=== PATIENT | female | born 1995 | race Caucasian/White ===

== ENCOUNTER 2019-12-20 05:49 | Day surgery (SDC) | payer OTHER ==
[2019-12-20] MEDS ORDERED: Lactated Ringers 1,000 ML IV SCH (06:30)
[2019-12-20] MEDS ORDERED: Xylocaine-Mpf 2% 5 Ml Vial ONE (07:48)
[2019-12-20] MEDS ORDERED: SUBLIMAZE 100 MCG/2 ML ONE ×2 (07:48→08:51)
[2019-12-20] MEDS ORDERED: Zemuron 100 MG/10 ML ONE (07:48)
[2019-12-20] MEDS ORDERED: Versed 2 MG/2 ML Injection ONE (07:48)
[2019-12-20] MEDS ORDERED: Decadron 4 MG INJ ONE (07:48)
[2019-12-20] MEDS ORDERED: DIPRIVAN 200 MG/20 ML IV ONE (07:48)
[2019-12-20] MEDS ORDERED: Zofran 4 MG/2 ML VIAL ONE (07:48)
[2019-12-20] MEDS ORDERED: Lactated Ringers 0 ML IV ONE (08:13)
[2019-12-20] MEDS ORDERED: Sensorcaine 0.25% 10 ML ONE (08:13)
[2019-12-20] MEDS ORDERED: ROBINUL ONE (08:18)
[2019-12-20] MEDS ORDERED: BRIDION 200MG/2ML IV ONE (08:21)
[2019-12-20] MEDS ORDERED: TORAdol 30 mg Injection ONE (08:44)
[2019-12-20 10:08] VITALS: O2SAT 100
[2019-12-20 10:09] VITALS: BP 134/70; PULSE 74
[2019-12-20 11:24] LABS: Appearance CLEAR (CLEAR); Bilirubin NEGATIVE (NEGATIVE); Blood NEGATIVE Ery/ul (0-5); Epithelial Cells RARE /HPF (FEW); Glucose NEGATIVE (NEGATIVE); Ketones NEGATIVE (NEGATIVE); Leukocyte Esterase NEGATIVE (NEGATIVE); Mucus SLIGHT /HPF (NEGATIVE); Nitrite NEGATIVE (NEGATIVE); Protein,Urine Dip NEGATIVE (Negative); RBC 0-2 /HPF (0-2); Specific Gravity 1.026 (1.005-1.025); Urobilinogen NEGATIVE mg/dL (0-1)
[2019-12-20 11:34] LABS: Bacteria NONE SEEN /HPF (NEGATIVE)
--- NOTE | 2019-12-21 10:00 | OP ---
SURGERY DATE/TIME: 12/20/2019 0747 PREOPERATIVE DIAGNOSIS: Multiparity desiring tubal sterilization. POSTOPERATIVE DIAGNOSIS: Multiparity desiring tubal sterilization. PROCEDURE: Laparoscopic tubal sterilization via Falope ring application. SURGEON: Wai Aldana D.O. GED TUTOR: Yosi Muhammad surgical dressing maker. ANESTHESIA: General. ESTIMATED BLOOD LOSS: Minimal. COMPLICATIONS: None. INDICATIONS: The risks, benefits, indications and alternatives of the procedure were reviewed with the patient prior to the procedure. The patient understood the risk of infection, bleeding, bowel injury, bladder injury, ureteral injury, uterine perforation, and ectopic that can still occur, can occur 1 in 4 people out of 1,000 may still get as a result of the procedure however desires to have this procedure as a possible means to alleviate her current medical condition. DESCRIPTION OF PROCEDURE AND FINDINGS: At this point the patient is taken to the operating room, given general sedation, placed in a dorsal lithotomy position. Prepped and draped in the usual sterile fashion. A weighted speculum was then placed in the vagina and the anterior lip of the cervix was grasped with a single tooth tenaculum. Endocervical dilators were advanced through the endocervical canal as a means to dilate the cervix and uterine manipulator was then advanced through the endocervical canal as a means to manipulate the uterus. Attention was then turned to the patient's abdominal region where a 5 mm skin incision was made approximately 2 cm above the umbilicus where a 5 mm trocar and sleeve were advanced under direct visualization where pneumoperitoneum was obtained with 4 liters of CO2 gas. Visualization in the abdominal region and pelvic region appeared to be within normal limits. An additional incision was made 2 cm above the symphysis pubis where an 8 mm trocar and sleeve were advanced under direct visualization. From this point the Falope ring applicator was then placed through the trocar site and the right fallopian tube was identified in the isthmic region. The Falope ring applicator was placed and as it discharged the Falope ring and was placed in excellent placement. The same procedure was performed on the left side where the Falope ring applicator was reloaded and the Falope ring was placed on the junction of the isthmic and ampullary region where it was displaced where a nice loop of fallopian tube caught with the Falope ring with excellent placement. There was excellent placement noted on both tubes and there was no other abnormality located in the pelvic region. From this point all instruments were then removed from the patient's abdominal region and the incisions were closed with 4-0 Monocryl suture. The patient was then taken out of dorsal lithotomy position, was taken out of anesthesia and was then taken to the recovery room in stable condition. All instruments and laps were accounted for x2.
== END 2019-12-20 10:10 | disposition home or self-care (01) ==
LOC: SDC 05:49
PROVIDERS: ATTEND Obstetrics & Gynecology
DX: Z30.2 Encounter for sterilization (principal); E11.9 Type 2 diabetes mellitus without complications; Z79.899 Other long term (current) drug therapy
CPT/HCPCS: 81001; 82962; 84703; 87086; J1100; J1885; J2250; J2405; J2704; J3010

== ENCOUNTER 2021-12-24 06:42 | Day surgery (SDC) | payer OTHER ==
[2021-12-24] MEDS ORDERED: Lactated Ringers 1,000 ML IV SCH (07:00)
[2021-12-24] MEDS ORDERED: CEFAZOLIN 2 GM-D5W BAG** 2 GM/50 ML ML IV SCH (07:00)
[2021-12-24] MEDS ORDERED: CEFAZOLIN 2 GM-D5W BAG** 2 GM/50 ML ML IV ONE (07:23)
[2021-12-24] MEDS ORDERED: Lactated Ringers 1,000 ML IV ONE ×2 (07:23→10:46)
[2021-12-24] MEDS ORDERED: Zofran 4 MG/2 ML VIAL ONE (10:06)
[2021-12-24] MEDS ORDERED: Xylocaine-Mpf 2% 5 Ml Vial ONE (10:06)
[2021-12-24] MEDS ORDERED: DIPRIVAN 200 MG/20 ML IV ONE (10:06)
[2021-12-24] MEDS ORDERED: TORAdol 30 mg Injection ONE (10:06)
[2021-12-24] MEDS ORDERED: Decadron 4 MG INJ ONE (10:06)
[2021-12-24] MEDS ORDERED: SUBLIMAZE 100 MCG/2 ML ONE ×2 (10:06→10:46)
[2021-12-24 11:43] VITALS: O2SAT 97
[2021-12-24 12:04] VITALS: BP 116/81; PULSE 66
--- NOTE | 2021-12-25 07:57 | OP ---
SURGERY DATE/TIME: 12/24/2021 1006 PREOPERATIVE DIAGNOSIS: Menorrhagia with failed medical management. POSTOPERATIVE DIAGNOSIS: Menorrhagia with failed medical management. PROCEDURE: Hysteroscopy D&C with endometrial ablation using NovaSure. SURGEON: Wai Aldana D.O. PURCHASING ASSISTANT: Martina Isaac surgical oncologist. ANESTHESIA: General. ESTIMATED BLOOD LOSS: Minimal. COMPLICATIONS: None. INDICATIONS: The risks, benefits, indications and alternatives of the procedure were reviewed with the patient prior to the procedure. The patient understood the risk of infection, bleeding, bowel injury, bladder injury, ureteral injury, uterine perforation, pelvic infection associated with the surgery however desires to have this surgery as a possible means to alleviate her current medical condition. DESCRIPTION OF PROCEDURE AND FINDINGS: At this point the patient is taken to the operating room, given general sedation, placed in the dorsal lithotomy position, prepped and draped in the usual sterile fashion. A weighted speculum is then placed in the patient's vagina and the anterior lip of the cervix was grasped with a single tooth tenaculum. Endocervical dilators were advanced through the endocervical canal as a means to dilate the cervix and at this point a 5 mm hysteroscope was then placed in through the endocervical region where visualization revealed normal endometrial lining. There were no gross abnormalities in the uterine cavity. From this point, the hysteroscope was removed and a curette was then placed into the fundus of the uterus and curettage was performed in all quadrants of the uterus retrieving a mild to moderate amount of endometrial tissue. From this point, hemostasis was obtained. At this point, the NovaSure instrument was then taken with a length of 6.5 cm was inserted through the endocervical canal towards the fundal region, retracted approximately 1 cm and engaged with a width of 3.8 cm. The instrument was then turned on. The machine was turned on for an ablative time of 50 seconds. After 50 seconds the machine was discontinued and the instrument disengaged and removed from the uterine cavity. From this point, all subsequent instruments were removed from the patient's vaginal region. The patient was then taken out of the dorsal lithotomy position, was taken out of anesthesia and was then taken to the recovery room in stable condition. All instruments and laps were accounted for x2.
== END 2021-12-24 12:04 | disposition home or self-care (01) ==
LOC: SDC 06:42
PROVIDERS: ATTEND Obstetrics & Gynecology
DX: N92.0 Excessive and frequent menstruation with regular cycle (principal); R73.03 Prediabetes
CPT/HCPCS: 81025; 82947; J0690; J1100; J1885; J2405; J2704; J3010

== ENCOUNTER 2024-06-21 08:35 | Observation (INO) | payer OTHER ==
[2024-06-27 07:06] LABS: Hematocrit 40.4 % (34.1-44.9); Hemoglobin 13.7 g/dL (11.2-15.7); Mean Cell Volume 86.1 fL (79.4-94.8); Mean Corpuscular Hemoglobin 29.2 pg (25.6-32.2); Mean Corpuscular Hgb Concent. 33.9 g/dL (32.2-35.5); Mean Platelet Volume 9.9 fL (9.4-12.3); Platelet Count 218 x10^3/uL (182-369); Red Blood Count 4.69 x10^6/uL (3.93-5.22); Red Cell Distribution Width 12.6 % (11.7-14.4); White Blood Count 8.3 x10^3/uL (3.98-10.04)
[2024-06-27 07:31] LABS: ALBUMIN 4.6 g/dL (3.5-5.0); ANION GAP 12.6 MEQ/L (5-15); BILIRUBIN,TOTAL 0.5 mg/dL (0.2-1.3); Creatinine 1 0.65 mg/dL (0.52-1.04); EST GLOMERULAR FILTRATION RATE 122.2 ML/MIN; Potassium 3.8 mmol/L (3.5-5.1); Total Protein 8.3 g/dL (6.3-8.2)
[2024-06-27 07:35] LABS: HCG URINE TEST NEGATIVE (NEGATIVE)
[2024-06-27] MEDS ORDERED: Astramorph-Pf 5 MG/10 ML IJ ONE (07:52)
[2024-06-27] MEDS ORDERED: Versed 2 MG/2 ML Injection IV ONE (07:52)
[2024-06-27] MEDS ORDERED: SUBLIMAZE 100 MCG/2 ML IV ONE (07:52)
[2024-06-27] MEDS ORDERED: ROCURONIUM BROMIDE IV ONE (07:52)
[2024-06-27] MEDS ORDERED: propofoL IV ONE (07:52)
[2024-06-27] MEDS ORDERED: Quelicin Fliptop 200 MG/10 ML IJ ONE (08:28)
[2024-06-27] MEDS ORDERED: Lactated Ringers 1,000 ML IV ONE (08:55)
[2024-06-27] MEDS ORDERED: BUPIVACAINE 0.5% VIAL IJ ONE (08:55)
[2024-06-27] MEDS ORDERED: PHENYLEPHRINE HCL IJ ONE (09:00)
[2024-06-27] MEDS ORDERED: BRIDION 200MG/2ML IV ONE (09:51)
[2024-06-27] MEDS ORDERED: Zofran 4 MG/2 ML VIAL IV ONE (09:51)
[2024-06-27 11:34] LABS: Appearance Clear (Clear); Bacteria None Seen /HPF (None Seen); Bilirubin Negative (Negative); Blood Negative (Negative); Epithelial Cells Rare /HPF (None Seen); Glucose, Urine Negative (Negative); Ketones Negative (Negative); Leukocyte Esterase Negative (Negative); Nitrite Negative (Negative); Protein,Urine Dip Trace (Negative); Specific Gravity >=1.030 (1.005-1.030); Urobilinogen 0.2 mg/dL (0.2)
[2024-06-27 11:35] LABS: Mucus Moderate /HPF (NEGATIVE)
[2024-06-27 11:40] LABS: ABO TYPING O; RH TYPING NEGATIVE
[2024-06-27 11:42] LABS: Antibody Screen POSITIVE (NEGATIVE)
[2024-06-27] MEDS ORDERED: Zofran 4 MG/2 ML VIAL IV PRN (13:44)
[2024-06-27] MEDS ORDERED: TORAdol 30 mg Injection IV PRN (13:46)
[2024-06-27] MEDS ORDERED: MEDICATION INTERVENTION MC SCH (14:00)
[2024-06-27] MEDS ORDERED: BENADRYL 50 MG/ML IV PRN (14:00)
[2024-06-27] MEDS ORDERED: Nubain 10 MG/ML IV PRN (14:00)
[2024-06-27] MEDS ORDERED: Narcan 0.4 MG/ML IV PRN (14:00)
[2024-06-27] MEDS ORDERED: Sodium Chloride 0.9% 10 ML FLUSH Syringe IJ PRN (14:00)
[2024-06-27] MEDS ORDERED: DEMEROL 50 MG IV PRN (14:00)
[2024-06-27] MEDS: CEFAZOLIN 2 GM/100 ML NaCl 2 GM/100 ML IVPB IV SCH (15:51)
[2024-06-27] MEDS: Mylicon 80MG PO SCH (15:52)
[2024-06-27] MEDS: Reglan 10 MG/2 ML IV SCH (15:52)
[2024-06-27] MEDS: CLARITIN 10 MG PO PRN (15:52)
[2024-06-27] MEDS: Zofran 4 MG/2 ML VIAL IV PRN (16:21)
[2024-06-27 18:19] LABS: Hematocrit 37.8 % (34.1-44.9); Hemoglobin 12.5 g/dL (11.2-15.7); Mean Cell Volume 87.5 fL (79.4-94.8); Mean Corpuscular Hemoglobin 28.9 pg (25.6-32.2); Mean Corpuscular Hgb Concent. 33.1 g/dL (32.2-35.5); Platelet Count 211 x10^3/uL (182-369); Red Blood Count 4.32 x10^6/uL (3.93-5.22); Red Cell Distribution Width 12.5 % (11.7-14.4); White Blood Count 15.8 x10^3/uL (3.98-10.04)
[2024-06-27] MEDS: Docusate Sodium 100 MG PO SCH (22:01)
[2024-06-27] MEDS: MORPHINE SULFATE 2 MG INJ IV PRN (22:02)
[2024-06-28 05:36] LABS: Hematocrit 34.6 % (34.1-44.9); Hemoglobin 11.2 g/dL (11.2-15.7); Mean Cell Volume 88.7 fL (79.4-94.8); Mean Corpuscular Hemoglobin 28.7 pg (25.6-32.2); Mean Corpuscular Hgb Concent. 32.4 g/dL (32.2-35.5); Mean Platelet Volume 10.4 fL (9.4-12.3); Platelet Count 213 x10^3/uL (182-369); Red Cell Distribution Width 12.8 % (11.7-14.4); White Blood Count 12.8 x10^3/uL (3.98-10.04)
[2024-06-28 06:02] LABS: ALBUMIN 3.6 g/dL (3.5-5.0); ANION GAP 10.8 MEQ/L (5-15); BILIRUBIN,TOTAL 0.4 mg/dL (0.2-1.3); Calcium 8.5 mg/dL (8.4-10.2); Creatinine 1 0.48 mg/dL (0.52-1.04); EST GLOMERULAR FILTRATION RATE 131.4 ML/MIN; Potassium 3.9 mmol/L (3.5-5.1); Total Protein 6.6 g/dL (6.3-8.2)
[2024-06-28 07:30] VITALS: RESP 17
--- NOTE | 2024-06-28 07:41 | PCM.NOTE ---
Date and Time: 06/28/24 0739 Subjective Assessment: pod 1 sp kimberly b/l salpingectomy pt resting in bed able to ambulate and tolerate diet vss afebrile abd; soft dressing intact ext; no clubbing cyanosis or edema hgb; 11 a/p sp kimberly b/l salpingectomy secondary to cpp and recurrent cervical dysplasia labs reviewed today stable for discharge later today should fu in office next Objective Data Vital Signs: Vital Signs - 24 hr Temp Pulse Resp BP Pulse Ox 06/28/24 07:29 96.8 F 77 17 101/59 98 06/28/24 07:03 98 06/28/24 04:00 96.2 F 83 16 103/57 94 L 06/27/24 23:47 97.5 F 55 L 20 97/56 93 L 06/27/24 20:36 94 L 06/27/24 20:00 96.6 F 58 L 16 98/59 97 06/27/24 16:00 97.7 F 77 18 109/66 93 L 06/27/24 14:30 93 H 104/60 90 L 06/27/24 14:00 92 L 06/27/24 13:45 92 L 06/27/24 13:30 78 113/68 91 L 06/27/24 13:00 79 110/72 90 L 06/27/24 12:58 92 L 06/27/24 12:30 91 H 90/50 91 L 06/27/24 12:15 87 107/68 89 L 06/27/24 12:00 75 108/66 91 L 06/27/24 11:45 97.5 F 75 16 112/68 91 L Pain Assessment - Last Documented Pain Intensity 3 Pain Scale Used 0-10 Pain Scale Intake and Output: Intake & Output 06/25/24 06/26/24 06/27/24 06/28/24 11:59 11:59 11:59 11:59 Intake Total 720 Output Total 1000 Balance -280 Weight 108.2 kg 108.2 kg Lab Results: Lab Results-Last 24 Hours 06/27/24 06/28/24 06/28/24 Range/Units 18:15 04:50 04:50 WBC 15.8 H 12.8 H (3.98-10.04) x10^3/uL RBC 4.32 3.90 L (3.93-5.22) x10^6/uL Hgb 12.5 11.2 (11.2-15.7) g/dL Hct 37.8 34.6 (34.1-44.9) % MCV 87.5 88.7 (79.4-94.8) fL MCH 28.9 28.7 (25.6-32.2) pg MCHC 33.1 32.4 (32.2-35.5) g/dL RDW 12.5 12.8 (11.7-14.4) % Plt Count 211 213 (182-369) x10^3/uL MPV 10.0 10.4 (9.4-12.3) fL Sodium 136 (135-145) mmol/L Potassium 3.9 (3.5-5.1) mmol/L Chloride 107 (98-107) mmol/L Carbon Dioxide 22 (22-30) mmol/L Anion Gap 10.8 (5-15) MEQ/L BUN 14 (7-17) mg/dL Creatinine 0.48 L (0.52-1.04) mg/dL Estimated GFR 131.4 ML/MIN Glucose 122 H (74-106) mg/dL Calcium 8.5 (8.4-10.2) mg/dL Total Bilirubin 0.40 (0.2-1.3) mg/dL AST 23 (14-36) U/L ALT 16 (0-35) U/L Alkaline Phosphatase 52 (38-126) U/L Serum Total Protein 6.6 (6.3-8.2) g/dL Albumin 3.6 (3.5-5.0) g/dL Assessment/Plan (1) S/P abdominal hysterectomy Current Visit: Yes Status: Acute Code(s): Z90.710 - ACQUIRED ABSENCE OF BOTH CERVIX AND UTERUS (2) Chronic pelvic pain in female Current Visit: Yes Status: Acute (3) Recurrent cervical intraepithelial neoplasia Current Visit: Yes Status: Acute Code(s): N87.9 - DYSPLASIA OF CERVIX UTERI, UNSPECIFIED
--- NOTE | 2024-06-28 07:47 | PCM.DS ---
Discharge Summary Date of Admission: 06/27/24 11:40 Admitting Physician: YARED YAN DO Primary Care Provider: SAURABH YEE Allergies Allergies No Known Drug Allergies Allergy (Verified 06/27/24 06:09) Hospital Summary - Hospital Course Hospital Course: pt admitted on jun 27 for undergoing a total abdominal hysterectomy b/l salpingectomy secondary to chronic pelvic pain and recurrent cervical dysplasia with hx of endometrial ablation. during postop period did very well able to ambulate and tolerate diet. incision with dressing intact with minimal soiling. labs reviewed with hgb at 11. pt stable for discharge and was advised to fu in office next thursday. all questions answered to her satisfaction. pt given rx for percocet and antibiotic prophylaxis. - Vitals & Intake/Output Vital Signs: Vital Signs Temperature 96.8 F 06/28/24 07:29 Pulse Rate 77 06/28/24 07:29 Respiratory Rate 17 06/28/24 07:29 Blood Pressure 101/59 06/28/24 07:29 O2 Sat by Pulse Oximetry 98 06/28/24 07:29 Intake & Output: Intake & Output 06/25/24 06/26/24 06/27/24 06/28/24 11:59 11:59 11:59 11:59 Intake Total 720 Output Total 1000 Balance -280 Weight 108.2 kg 108.2 kg - Lab Result Diagrams: 06/28/24 04:50 06/28/24 04:50 Lab Results-Last 24 Hrs: Lab Results-Last 24 Hours 06/27/24 06/28/24 06/28/24 Range/Units 18:15 04:50 04:50 WBC 15.8 H 12.8 H (3.98-10.04) x10^3/uL RBC 4.32 3.90 L (3.93-5.22) x10^6/uL Hgb 12.5 11.2 (11.2-15.7) g/dL Hct 37.8 34.6 (34.1-44.9) % MCV 87.5 88.7 (79.4-94.8) fL MCH 28.9 28.7 (25.6-32.2) pg MCHC 33.1 32.4 (32.2-35.5) g/dL RDW 12.5 12.8 (11.7-14.4) % Plt Count 211 213 (182-369) x10^3/uL MPV 10.0 10.4 (9.4-12.3) fL Sodium 136 (135-145) mmol/L Potassium 3.9 (3.5-5.1) mmol/L Chloride 107 (98-107) mmol/L Carbon Dioxide 22 (22-30) mmol/L Anion Gap 10.8 (5-15) MEQ/L BUN 14 (7-17) mg/dL Creatinine 0.48 L (0.52-1.04) mg/dL Estimated GFR 131.4 ML/MIN Glucose 122 H (74-106) mg/dL Calcium 8.5 (8.4-10.2) mg/dL Total Bilirubin 0.40 (0.2-1.3) mg/dL AST 23 (14-36) U/L ALT 16 (0-35) U/L Alkaline Phosphatase 52 (38-126) U/L Serum Total Protein 6.6 (6.3-8.2) g/dL Albumin 3.6 (3.5-5.0) g/dL - Procedures and Test Procedures and Tests throughout Hospitalization: Therapy Orders & Screens 06/27/24 11:40 Incentive Spirometry ROUTINE Comment: 06/27/24 12:57 Oxygen NASAL CANNULA 3 lpm Comment: Final Diagnosis/Problem List - Final Discharge Diagnosis/Problem (1) S/P abdominal hysterectomy Current Visit: Yes Status: Acute Code(s): Z90.710 - ACQUIRED ABSENCE OF BOTH CERVIX AND UTERUS (2) Chronic pelvic pain in female Current Visit: Yes Status: Acute (3) Recurrent cervical intraepithelial neoplasia Current Visit: Yes Status: Acute Code(s): N87.9 - DYSPLASIA OF CERVIX UTERI, UNSPECIFIED - Discharge Disposition: Home, Self-Care Condition: Stable Prescriptions: New Oxycodone HCl/Acetaminophen [Percocet 5-325 mg Tablet] 1 each PO Q6HPRN PRN #15 tablet MDD 4 PRN Reason: Pain No Action Phentermine HCl [Adipex-P] 37.5 mg PO DAILY Follow up with: SAURABH YEE PA [Primary Care Provider] -
--- NOTE | 2024-06-28 07:55 | PCM.DS ---
Discharge Summary Date of Admission: 06/27/24 11:40 Admitting Physician: YARED YAN DO Primary Care Provider: SAURABH YEE Allergies Allergies No Known Drug Allergies Allergy (Verified 06/27/24 06:09) Hospital Summary - Hospital Course Hospital Course: pt admitted on jun 27 and underwent kimberly b;l salpingectomy for chronic pelvic pain and recurrent cervical dysplasia and was done so without complication. during postop period did well able to ambulate and tolerate diet. incision with dressing intact with no soiling on dressing. labs reviewed with stable hgb at 11. pt stable for discharge and was advised to fu in office next thursday. all questions answered to her satisfaction and was advised to call me for any issues that may arise. rx for percocet sent to hospital and antibiotic prophylaxis sent to her pharmacy - Vitals & Intake/Output Vital Signs: Vital Signs Temperature 96.8 F 06/28/24 07:29 Pulse Rate 77 06/28/24 07:29 Respiratory Rate 17 06/28/24 07:29 Blood Pressure 101/59 06/28/24 07:29 O2 Sat by Pulse Oximetry 98 06/28/24 07:29 Intake & Output: Intake & Output 06/25/24 06/26/24 06/27/24 06/28/24 11:59 11:59 11:59 11:59 Intake Total 720 Output Total 1000 Balance -280 Weight 108.2 kg 108.2 kg - Lab Result Diagrams: 06/28/24 04:50 06/28/24 04:50 Lab Results-Last 24 Hrs: Lab Results-Last 24 Hours 06/27/24 06/28/24 06/28/24 Range/Units 18:15 04:50 04:50 WBC 15.8 H 12.8 H (3.98-10.04) x10^3/uL RBC 4.32 3.90 L (3.93-5.22) x10^6/uL Hgb 12.5 11.2 (11.2-15.7) g/dL Hct 37.8 34.6 (34.1-44.9) % MCV 87.5 88.7 (79.4-94.8) fL MCH 28.9 28.7 (25.6-32.2) pg MCHC 33.1 32.4 (32.2-35.5) g/dL RDW 12.5 12.8 (11.7-14.4) % Plt Count 211 213 (182-369) x10^3/uL MPV 10.0 10.4 (9.4-12.3) fL Sodium 136 (135-145) mmol/L Potassium 3.9 (3.5-5.1) mmol/L Chloride 107 (98-107) mmol/L Carbon Dioxide 22 (22-30) mmol/L Anion Gap 10.8 (5-15) MEQ/L BUN 14 (7-17) mg/dL Creatinine 0.48 L (0.52-1.04) mg/dL Estimated GFR 131.4 ML/MIN Glucose 122 H (74-106) mg/dL Calcium 8.5 (8.4-10.2) mg/dL Total Bilirubin 0.40 (0.2-1.3) mg/dL AST 23 (14-36) U/L ALT 16 (0-35) U/L Alkaline Phosphatase 52 (38-126) U/L Serum Total Protein 6.6 (6.3-8.2) g/dL Albumin 3.6 (3.5-5.0) g/dL - Procedures and Test Procedures and Tests throughout Hospitalization: Therapy Orders & Screens 06/27/24 11:40 Incentive Spirometry ROUTINE Comment: 06/27/24 12:57 Oxygen NASAL CANNULA 3 lpm Comment: Final Diagnosis/Problem List - Final Discharge Diagnosis/Problem (1) S/P abdominal hysterectomy Current Visit: Yes Status: Acute Code(s): Z90.710 - ACQUIRED ABSENCE OF BOTH CERVIX AND UTERUS (2) Chronic pelvic pain in female Current Visit: Yes Status: Acute (3) Recurrent cervical intraepithelial neoplasia Current Visit: Yes Status: Acute Code(s): N87.9 - DYSPLASIA OF CERVIX UTERI, UNSPECIFIED - Discharge Disposition: Home, Self-Care Condition: Stable Prescriptions: New Oxycodone HCl/Acetaminophen [Percocet 5-325 mg Tablet] 1 each PO Q6HPRN PRN #15 tablet MDD 4 PRN Reason: Pain Oxycodone HCl/Acetaminophen [Percocet 5-325 mg Tablet] 1 each PO Q6H PRN PRN 7 Days #15 tablet MDD 4 PRN Reason: Pain Oxycodone HCl/Acetaminophen [Percocet 5-325 mg Tablet] 1 each PO Q6H PRN PRN #15 tablet MDD 4 PRN Reason: Pain No Action Phentermine HCl [Adipex-P] 37.5 mg PO DAILY Follow up with: YARED YAN DO [ACTIVE STAFF] - 07/06/24 10:30 am
[2024-06-28] MEDS: Lactated Ringers 1,000 ML IV SCH (09:11)
[2024-06-28] MEDS: PERCOCET TABLET 5/325MG PO PRN (09:31)
[2024-06-28] MEDS: ENOXAPARIN SODIUM SQ SCH (09:32)
[2024-06-28 09:54] VITALS: O2SAT 96
[2024-06-28] MEDS ORDERED: PHENTERMINE HCL 37.5 MG PO SCH (10:00)
--- NOTE | 2024-06-28 10:30 | OP ---
SURGERY DATE/TIME: 06/27/2024 [id number] PREOPERATIVE DIAGNOSIS: Chronic pelvic pain and recurrent cervical dysplasia. POSTOPERATIVE DIAGNOSIS: Chronic pelvic pain and recurrent cervical dysplasia. PROCEDURE: Total abdominal hysterectomy and bilateral salpingectomy. SURGEON: Romeo Aldana MD SENIOR COPYWRITER: Jemima Tamez ANESTHESIA: General. ESTIMATED BLOOD LOSS: 100 mL COMPLICATIONS: None. FINDINGS: The risks, benefits, indications, and alternatives of the procedure were reviewed with the patient prior to the procedure. The patient understood the risks of infection, bleeding, bowel injury, bladder injury, ureteral injury, pelvic infection, thromboembolic disorder, hot flashes, decreased sex drive that could be associated with the surgery and desired to have this surgery as a possible means to alleviate her current medical condition. DESCRIPTION OF PROCEDURE AND FINDINGS: At this point, the patient was taken to the operating room and placed in the supine position, given general sedation. She was prepped and draped in the usual sterile fashion. A Pfannenstiel incision was made approximately 2 cm above the symphysis pubis and extended sharply through the rectus fascia. The fascia was then incised bilaterally with the curved Mccarty scissors and the muscles of the anterior abdominal wall were in the midline by sharp and blunt dissection. The peritoneum was then grasped between 2 pickups, elevated, and entered sharply with the Metzenbaum scissors. The pelvis was then examined and was noted to have an approximately an 8 to 9-week size uterus. An O'Naeem-O'Pizarro retractor was placed into the incision. The bowel packed away with moist lap operative sponges. A tenaculum was then placed on the fundus of the uterus as a means to elevate the uterus. At this point, the LigaSure was used to clamp, coagulate, and cut the left uteroovarian ligament which was taken down to the round ligament towards the uterine vasculature on the left side and the bladder flap developed on its side. Same procedure as performed on the right side where the right uteroovarian ligament was clamped, coagulated and cut, taken down to the round ligament to where the uterine vascular on the right side. From this point, the bilateral fallopian tubes were elevated and a LigaSure was placed on the mesosalpinx and was excised bilaterally and hemostasis was obtained. From this point, the anterior leaflet of the broad ligament was incised along the bladder reflection to the midline again from both sides. The bladder was gently and meticulously dissected off the lower uterine segment and the cervix with a sponge stick. From this point, the uterine arteries were skeletonized bilaterally, clamped with Sabine clamps, transected and sutured ligated with 0 Vicryl suture. Again, hemostasis was assured. The uterosacral ligaments were clamped on both sides, transected, and suture ligated in a similar fashion. The cervix and the uterus were then amputated with the cautery. The vaginal cuff angles were closed with [id number] stitches as well as Vicryl and were transfixed to the ipsilateral, cardinal, and uterosacral ligaments. The remainder of the vaginal cuff was closed with a series of interrupted 0 Vicryl [id number] sutures. From this point, the pelvis was then irrigated copiously with warm normal saline. Fibrillar was placed on the vaginal cuff for minimal bleeding that was noted. All operative sponges and instruments were removed from the patient's abdomen. From this point, the fascia was then closed with running 0-Vicryl and hemostasis was assured. The subcutaneous layer was closed with 3-0 Vicryl suture. The skin was closed with absorbable arturo called Insorb. Sponge, lap, needle, and instrument counts were correct x2. The patient was then taken to the recovery room in stable condition.
[2024-06-28] MEDS: HOLD NARCOTIC ANALGESICS AND SEDATIVES X24 HR MC SCH (11:08)
[2024-06-28 12:00] VITALS: BP 118/69; PULSE 79; TEMP 97.9
== END 2024-06-28 13:30 | disposition home or self-care (01) ==
LOC: EDSTATUS 14:47 → MED SURG 06-27 11:40
PROVIDERS: ADMIT Obstetrics & Gynecology; ATTEND Obstetrics & Gynecology
DX: N87.9 Dysplasia of cervix uteri, unspecified (principal); R10.2 Pelvic and perineal pain
CPT/HCPCS: 36415; 58150; 80053; 81001; 81025; 85027; 86850; 86900; 86901; 87086; 94640; 94762; J0330; J0690; J1650; J2250; J2270; J2274; J2371; J2405; J2704; J3010; A9270-GY

== ENCOUNTER → 2024-06-27 | Day surgery (SDC) | payer OTHER ==
[~2024-06-27] MED LIST: Astramorph-Pf 5 MG/10 ML ONE; BRIDION 200MG/2ML IV ONE; Lactated Ringers 1,000 ML IV ONE; Marcaine 0.5%/Epinephrine 10 ML ONE; NEURONTIN ONE; PHENYLEPHRINE HCL ONE; Quelicin Fliptop 200 MG/10 ML ONE; ROCURONIUM BROMIDE IV ONE; SUBLIMAZE 100 MCG/2 ML ONE; Versed 2 MG/2 ML Injection ONE; Zofran 4 MG/2 ML VIAL ONE; propofoL IV ONE
[2024-06-27] MEDS: celeBREX 100 MG PO ONE (06:30)
[2024-06-27] MEDS: TYLENOL EXTRA STRENGTH 500 MG PO ONE (06:30)
[2024-06-27] MEDS: Decadron 4 MG PO ONE (06:31)
[2024-06-27] MEDS: NEURONTIN PO ONE (06:34)
[2024-06-27 06:46] VITALS: BP 122/85; PULSE 78; RESP 16; TEMP 96.8
[2024-06-27] MEDS: Pepcid 20 MG VIAL IV ONE (06:48)
[2024-06-27] MEDS: Reglan 10 MG/2 ML IV ONE (06:48)
[2024-06-27] MEDS: Transderm Scop 1.5MG Patch TOP PRN (06:49)
[2024-06-27] MEDS: CEFAZOLIN 2 GM/100 ML NaCl 2 GM/100 ML IVPB IV SCH (06:49)
[2024-06-27] MEDS: Lactated Ringers 1,000 ML IV SCH (06:49)
[2024-06-27] MEDS: FLAGYL 500 MG IVPB 500 MG/100 ML BAG IV ONE (07:14)
[2024-06-27] MEDS: Sodium Chloride 3 ML UD NEBULES IH ONE (11:16)
[2024-06-27] MEDS: Xopenex 1.25 MG/0.5 ML UD NEBULE IH ONE (11:16)
[2024-06-27 11:17] VITALS: O2SAT 94
--- NOTE | 2024-06-28 10:30 | OP ---
SURGERY DATE/TIME: 06/27/2024 [id number] PREOPERATIVE DIAGNOSIS: Chronic pelvic pain and recurrent cervical dysplasia. POSTOPERATIVE DIAGNOSIS: Chronic pelvic pain and recurrent cervical dysplasia. PROCEDURE: Total abdominal hysterectomy and bilateral salpingectomy. SURGEON: Romeo Aldana MD PARBOILER: Jemima Tamez ANESTHESIA: General. ESTIMATED BLOOD LOSS: 100 mL COMPLICATIONS: None. FINDINGS: The risks, benefits, indications, and alternatives of the procedure were reviewed with the patient prior to the procedure. The patient understood the risks of infection, bleeding, bowel injury, bladder injury, ureteral injury, pelvic infection, thromboembolic disorder, hot flashes, decreased sex drive that could be associated with the surgery and desired to have this surgery as a possible means to alleviate her current medical condition. DESCRIPTION OF PROCEDURE AND FINDINGS: At this point, the patient was taken to the operating room and placed in the supine position, given general sedation. She was prepped and draped in the usual sterile fashion. A Pfannenstiel incision was made approximately 2 cm above the symphysis pubis and extended sharply through the rectus fascia. The fascia was then incised bilaterally with the curved Mcacrty scissors and the muscles of the anterior abdominal wall were in the midline by sharp and blunt dissection. The peritoneum was then grasped between 2 pickups, elevated, and entered sharply with the Metzenbaum scissors. The pelvis was then examined and was noted to have an approximately an 8 to 9-week size uterus. An O'Naeem-O'Pizarro retractor was placed into the incision. The bowel packed away with moist lap operative sponges. A tenaculum was then placed on the fundus of the uterus as a means to elevate the uterus. At this point, the LigaSure was used to clamp, coagulate, and cut the left uteroovarian ligament which was taken down to the round ligament towards the uterine vasculature on the left side and the bladder flap developed on its side. Same procedure as performed on the right side where the right uteroovarian ligament was clamped, coagulated and cut, taken down to the round ligament to where the uterine vascular on the right side. From this point, the bilateral fallopian tubes were elevated and a LigaSure was placed on the mesosalpinx and was excised bilaterally and hemostasis was obtained. From this point, the anterior leaflet of the broad ligament was incised along the bladder reflection to the midline again from both sides. The bladder was gently and meticulously dissected off the lower uterine segment and the cervix with a sponge stick. From this point, the uterine arteries were skeletonized bilaterally, clamped with Sabine clamps, transected and sutured ligated with 0 Vicryl suture. Again, hemostasis was assured. The uterosacral ligaments were clamped on both sides, transected, and suture ligated in a similar fashion. The cervix and the uterus were then amputated with the cautery. The vaginal cuff angles were closed with [id number] stitches as well as Vicryl and were transfixed to the ipsilateral, cardinal, and uterosacral ligaments. The remainder of the vaginal cuff was closed with a series of interrupted 0 Vicryl [id number] sutures. From this point, the pelvis was then irrigated copiously with warm normal saline. Fibrillar was placed on the vaginal cuff for minimal bleeding that was noted. All operative sponges and instruments were removed from the patient's abdomen. From this point, the fascia was then closed with running 0-Vicryl and hemostasis was assured. The subcutaneous layer was closed with 3-0 Vicryl suture. The skin was closed with absorbable arturo called Insorb. Sponge, lap, needle, and instrument counts were correct x2. The patient was then taken to the recovery room in stable condition.
== END ==
LOC: SDC 06:02
PROVIDERS: ATTEND Obstetrics & Gynecology
DX: R10.2 Pelvic and perineal pain (principal); N87.9 Dysplasia of cervix uteri, unspecified
CPT/HCPCS: 36415; 80053; 81001; 81025; 85027; 86850; 86900; 86901; 87086; 94640; J0330; J0690; J2250; J2274; J2371; J2405; J2704; J3010; A9270-GY

== ENCOUNTER 2025-01-05 09:47 | Day surgery (SDC) | payer OTHER ==
[~2025-01-05 09:47] MED LIST changes: -Astramorph-Pf 5 MG/10 ML ONE; -BRIDION 200MG/2ML IV ONE; +CEFAZOLIN SODIUM ONE; -Marcaine 0.5%/Epinephrine 10 ML ONE; -NEURONTIN ONE; -PHENYLEPHRINE HCL ONE; -Quelicin Fliptop 200 MG/10 ML ONE; -ROCURONIUM BROMIDE IV ONE; -SUBLIMAZE 100 MCG/2 ML ONE; +Sensorcaine 0.25% 10 ML ONE; -Versed 2 MG/2 ML Injection ONE; -Zofran 4 MG/2 ML VIAL ONE; -propofoL IV ONE
[2025-01-05] MEDS ORDERED: Zofran 4 MG/2 ML VIAL IV ONE (09:48)
[2025-01-05] MEDS ORDERED: Sensorcaine 0.25% 10 ML IJ ONE (09:48)
[2025-01-05 09:59] VITALS: RESP 18
[2025-01-05] MEDS: Lactated Ringers 1,000 ML IV SCH (10:07)
[2025-01-05] MEDS ORDERED: propofoL IV ONE (12:20)
[2025-01-05 14:00] VITALS: O2SAT 99
[2025-01-05 14:15] VITALS: BP 117/83; PULSE 72; TEMP 97.8
--- NOTE | 2025-01-06 09:27 | OP ---
SURGERY DATE/TIME: 01/05/2025 2964-2710 PREOPERATIVE DIAGNOSIS: Abdominal wall soft tissue mass. POSTOPERATIVE DIAGNOSIS: Abdominal wall soft tissue mass. PROCEDURE: Excision of abdominal wall soft tissue mass in the subcutaneous space measuring 5 cm in greatest dimension. SURGEON: Shashi Wayne MD ANESTHESIA: General. ESTIMATED BLOOD LOSS: Minimal. CONDITION: Stable. COMPLICATIONS: None. SPECIMEN: Mass. INDICATIONS: The patient is a 29-year-old female that has a bothersome mass, right lateral abdominal wall. This is mobile on exam in the subcutaneous space. She is obese. The specimen is pretty deep but still in the subcutaneous space. Risks of infection, bleeding, injury to nearby structure, scarring, seroma, recurrence discussed, as well as low chance of any malignancy. She elects to proceed. FINDINGS: Lipomatous-appearing fatty tumor in subcutaneous space excised. DESCRIPTION OF PROCEDURE: The patient brought to the operating room. General anesthesia induced. Routinely positioned, prepped, draped. Time-out performed. Received a preoperative antibiotic. The lesion had been marked in the preoperative holding area. This is right lateral abdomen, that about a 4 cm incision is made, carried down through skin and subcutaneous. The mass is clearly encountered. This is a well-demarcated fatty tumor, soft, mobile that it is just dissected bluntly around it, that it comes out nicely. The surrounding fat is satisfactory, hemostatic. Deep dermal with 3-0 Vicryl. Skin closed with 4-0 Vicryl sutures. Steri-Strips, sterile dressings applied. All counts correct. The patient tolerated the procedure well, was taken to Recovery in stable condition.
== END 2025-01-05 14:15 | disposition home or self-care (01) ==
LOC: SDC 09:47
PROVIDERS: ATTEND Surgery
DX: D21.4 Benign neoplasm of connective and other soft tissue of abdomen (principal)